=== PATIENT | female | born 1990 | race Caucasian/White ===

== ENCOUNTER 2018-03-22 21:28 | Emergency (ER) | payer OTHER ==
[2018-03-22 21:31] VITALS: BP 134/78; PULSE 68; RESP 18; TEMP 98.3; O2SAT 99
--- NOTE | 2018-03-22 22:12 | PD ---
HPI Chief Complaint: Exposure to Blood/Body Fluids Time Seen by Provider: 21:46 Travel History International Travel<30 days: No Contact w/Intl Traveler<30days: No Traveled to known affect area: No History of Present Illness HPI Patient is a 27-year-old female presenting to the emergency department for evaluation after being stuck with a needle at work. Patient states she was in a clean stock room when she was collecting supplies and an uncapped needle was on the counter and when she picked up her supplies she stuck herself in her right thumb. There was no visible blood on the needle. Patient cleaned the wound after the event occurred. Patient denies any pain at this time. Symptom onset was sudden, symptoms are mild in nature. [facility] Past Medical History Medical History: Denies Significant Hx Diminished Hearing: No Immunizations Current: Yes ?: Not Past Surgical History Ear Surgery: Yes (EAR TUBES CHILD) Social History Alcohol Use: Yes Tobacco Use: No Substance Use: No Allergies-Medications (Allergen,Severity, Reaction): Coded Allergies: No Known Allergies (Unverified , 03/22/18) Review of Systems Except as stated in HPI: all other systems reviewed are Neg Skin: Positive Lesions Physical Exam Narrative GENERAL: Well-developed, well-nourished, alert female. Presenting in no acute distress. SKIN: Warm and dry. Puncture wound to the right first finger pad. No active bleeding noted. No erythema or edema. HEAD: Atraumatic. Normocephalic. EYES: Pupils equal and round. No scleral icterus. No injection or drainage. ENT: No nasal bleeding or discharge. Mucous membranes pink and moist. NECK: Trachea midline. No JVD. CARDIOVASCULAR: Regular rate and rhythm. RESPIRATORY: No accessory muscle use. Clear to auscultation. Breath sounds equal bilaterally. GASTROINTESTINAL: Abdomen soft, non-tender, nondistended. Hepatic and splenic margins not palpable. MUSCULOSKELETAL: Extremities without clubbing, cyanosis, or edema. No obvious deformities. NEUROLOGICAL: Awake and alert. No obvious cranial nerve deficits. Motor grossly within normal limits. Five out of 5 muscle strength in the arms and legs. Normal speech. PSYCHIATRIC: Appropriate mood and affect; insight and judgment normal. Data Data Last Documented VS Vital Signs Date Time Temp Pulse Resp B/P (MAP) Pulse Ox O2 Delivery O2 Flow Rate FiO2 03/22/18 21:31 98.3 68 18 134/78 (96) 99 [facility] Medical Decision Making Medical Screen Exam Complete: Yes Emergency Medical Condition: Yes Interpretation(s) Vital Signs Date Time Temp Pulse Resp B/P (MAP) Pulse Ox O2 Delivery O2 Flow Rate FiO2 03/22/18 21:31 98.3 68 18 134/78 (96) 99 Differential Diagnosis Puncture wound versus needlestick versus exposure versus other Narrative Course Patient is a 27-year-old female presenting for emergency department for evaluation of a needlestick that occurred at work. Needlestick occurred in a clean utility room, there was no visible blood on the needle. Wound was cleaned prior to arrival in the emergency department. Patient's vital signs are stable. Postexposure prophylaxis is not recommended at this time. Furthermore patient declined PEP. Patient to follow-up with employee med. Patient is stable for discharge. Diagnosis Primary Impression: Needle stick injury of finger Qualified Codes: S61.239A - Puncture wound without foreign body of unspecified finger without damage to nail, initial encounter; W27.3XXA - Contact with needle (sewing), initial encounter Additional Impression: Exposure to blood or body fluid Referrals: Employ Med Patient Instructions: Postexposure Prophylaxis (ED), General Instructions Additional Instructions: Follow-up with employee med Return to emergency department for any new or worsening symptoms Med/Other Pt SpecificInfo: No Meds Exist/No RX given Disposition: 01 DISCHARGE HOME Condition: Stable JohnIrene hallDanette ARNP March 22, 2018 22:12
== END 2018-03-22 22:22 | disposition home or self-care (01) ==
LOC: NEPD 21:28
DX: S61.031A Puncture wound without foreign body of right thumb without damage to nail, initial encounter (principal); W46.0XXA Contact with hypodermic needle, initial encounter; Z77.21 Contact with and (suspected) exposure to potentially hazardous body fluids; Y99.0 Civilian activity done for income or pay
CPT/HCPCS: 99281